=== PATIENT | male | born 1985 | race American Indian/Alaskan Native ===

== ENCOUNTER 2024-10-05 01:38 | Emergency (ER) | payer OTHER, SELFPAY ==
[2024-10-05 01:38] VITALS: BMI 28.1
[2024-10-05 01:55] VITALS: BP 123/95; PULSE 97; RESP 18; TEMP 38.1; O2SAT 95
--- NOTE | 2024-10-05 02:38 | EDRME_ITS ---
Rapid Medical Screening Exam [facility] Arrival date/time: 10/05/24 01:38 38M with no significant PMH presents to ED with 1 week of worsening generalized (lower extremity>upper) swelling and body/joint pain. Patient works as a education counselor. Patient also drinks a lot of alcohol most weekends. Patient feels like his sinusitis may also have flared up (bad smell in L nare); patient had ENT surgery 2 years ago for this. Otherwise, patient denies URI symptoms. Chief Complaint: Extremity Injury, Lower Time Seen by Provider: 10/05/24 02:40 Vital signs: Vital Signs Temperature 100.5 F H 10/05/24 01:55 Pulse Rate 97 10/05/24 01:55 Respiratory Rate 18 10/05/24 01:55 Blood Pressure 123/95 H 10/05/24 01:55 Pulse Oximetry (%) 93 L 10/05/24 01:55 Oxygen Delivery Method Room Air 10/05/24 01:55
[2024-10-05 03:09] LABS: Collection Type, Urine Clean Catch; Squamous Epithelial Cell,Urine 0 /hpf (0-5)
[2024-10-05 03:24] VITALS: TEMP 38.1
[2024-10-05 03:24] LABS: Basophils # (Auto) 0.1 Thou/mm3 (0.0-0.2); Basophils % (Auto) 1 % (0-2.5); Eosinophils # (Auto) 0.8 Thou/mm3 (0.0-0.5); Eosinophils % (Auto) 10 % (0-10); Hematocrit 44.8 % (41.0-53.0); Hemoglobin 14.7 g/dL (13.5-16.0); Immature Granulocytes % (Auto) 0 % (0-0); Immature Granulocytes Auto 0.02 Thou/mm3 (0.00-0.00); Lymphocytes # (Auto) 1.3 Thou/mm3 (1.0-4.8); Lymphocytes % (Auto) 16 % (10-50); Mean Corpuscular HGB Conc 32.8 g/dl (31.0-37.0); Mean Corpuscular Hemoglobin 27.9 pg (25.0-35.0); Mean Corpuscular Volume 85 fL (80-100); Monocytes # (Auto) 0.8 Thou/mm3 (0.0-0.8); Monocytes % (Auto) 9 % (0-12); Neutrophils # (Auto) 5.5 Thou/mm3 (1.8-7.7); Neutrophils % (Auto) 64 % (37-80); Nucleated Red Blood Cell % 0 /100 WBC (0); Platelet Count 330 Thou/mm3 (140-440); RDW Standard Deviation 39.6 fL (35.1-43.9); Red Blood Count 5.26 Miln/mm3 (4.50-5.90); White Blood Count 8.5 Thou/mm3 (3.8-10.6)
[2024-10-05] MEDS: ACETAMINOPHEN 500 MG TABLET 1000 MG PO (03:24)
[2024-10-05] MEDS: NAPROXEN 250 MG TABLET 500 MG PO (03:25)
[2024-10-05 03:26] LABS: Bilirubin,Urine Negative (Negative); Blood,Urine Negative (Negative); Clarity,Urine Clear (Clear/Hazy); Color,Urine Lt-Yellow (Lt Yel-Yel); Glucose, Urine Negative (Negative); Ketones,Urine Negative (Negative); Leukocyte Esterase,Urine Negative (Negative); Nitrite,Urine Negative (Negative); PH,Urine 6.5 (5.0-7.0); Protein,Urine Negative (Neg - Trace); RBC,Urine 1 /hpf (0-3); Specific Gravity,Urine 1.018 (1.001-1.035); Urobilinogen,Urine Negative mg/dL (0.0-1.0); WBC,Urine 1 /hpf (0-5)
[2024-10-05 03:32] LABS: B-Type Natriuretic Peptide < 20 pg/mL (0-100)
[2024-10-05 03:37] LABS: Alanine Aminotransferase 21 U/L (10-49); Albumin, Serum 4.9 gm/dL (3.5-5.0); Albumin/Globulin Ratio 1.4 (1.2-2.2); Alkaline Phosphatase 102 U/L (46-116); Anion Gap 8 (7-16); Aspartate Amino Transferase 19 U/L (0-34); BUN/Creatinine Ratio 12 Ratio (12-20); Bilirubin,Total 0.8 mg/dL (0.3-1.2); Blood Urea Nitrogen 12 mg/dL (9-23); Calcium 9.5 mg/dL (8.3-10.6); Calcium (Corrected) 9.5 mg/dL (8.5-10.1); Carbon Dioxide 26.6 mMol/L (20.0-31.0); Chloride 101 mMol/L (98-107); Estimated Creatinine Clearance 101.4 mL/min (>60); Globulin 3.4 gm/dL (2.3-3.5); Glucose 113 mg/dL (74-106); Osmolality,Calculated 272 (275-295); Potassium 4.5 mMol/L (3.4-5.1); Sodium 136 mMol/L (136-145); Thyroid Stimulating Hormone 2.52 uIU/mL (0.55-4.78); Total Protein 8.3 gm/dL (5.7-8.2); eGFR > 60 See Note
[2024-10-05 03:39] LABS: Amphetamine/Methamp Scrn,U Negative (Negative); Barbiturate Screen,Urine Negative (Negative); Benzodiazepines Screen,Urine Negative (Negative); Benzoylecgonine Screen, Ur Negative (Negative); Fentanyl Screen,Urine Negative (Negative); Opiate Screen,Urine Negative (Negative); THC Screen,Urine Negative (Negative)
--- NOTE | 2024-10-05 04:38 | EDNOTE_ITS ---
Lower Extremity Injury RME/HPI General Chief Complaint: Extremity Injury, Lower Stated Complaint: LEG, HAND SWELLING/PAIN Time Seen by Provider: 10/05/24 02:40 Arrival date/time: 10/05/24 01:38 RME / HPI RME / HPI Narrative: 10/05/24 01:38 38M with no significant PMH presents to ED with 1 week of worsening generalized (lower extremity>upper) swelling and body/joint pain. Patient works as a customer support specialist. Patient also drinks a lot of alcohol most weekends. Patient feels like his sinusitis may also have flared up (bad smell in L nare); patient had ENT surgery 2 years ago for this. Otherwise, patient denies URI symptoms. Dr. Trejo?s Main ED Evaluation: 38yo male with no significant past medical history presents to the ED for complaints of BLE pain and swelling. Patient states he started having BLE pain on Wednesday, reporting he started noticing BLE swelling tonight. He states he also has swelling and pain to his bilateral elbows and hands, as well as having a rash to his legs. He reports associated chills. He endorses taking NSAIDs at home with some improvement of symptoms. He denies any other associated symptoms. Patient works as a customer support specialist. No known allergies. Related Data Allergies Allergy/AdvReac Type Severity Reaction Status Date / Time NKA* Allergy Uncoded 10/05/24 01:41 Review of Systems Review of Systems Systems Reviewed: All systems reviewed, normal except as documented Narrative Review of Systems: Gen: No fever, no chills, no weight loss EYES: No discharge, no visual changes, no pain HEENT: No ear pain, no congestion, no sore throat PULM: No shortness of breath, no cough, no congestion CV: No chest pain, no dyspnea on exertion, no palpitations GI: No nausea, no vomiting, no diarrhea, no pain, no constipation : No frequency, no urgency, no dysuria Musc/skel: + joint pain, no back pain Skin: + rash. Warm and dry. Psyc: No hallucinations, no depression Heme/Lymph: No easy bleeding or bruising tendencies Neuro: No weakness, no headache ED Exam Narrative Physical exam: GENERAL APPEARANCE: alert and oriented x 4, well-developed, well-nourished, no acute distress VITALS: All vitals were reviewed and the pulse ox is 95% on room air, which is normal according to my interpretation. HEENT: Normocephalic, atraumatic; pupils equal, round, reactive to light; EOMI; mucous membranes pink, moist; oropharynx clear NECK: Supple LUNGS: CTABL; no wheezes, no rales, no rhonchi HEART: Regular rate, regular rhythm; normal S1, S2; no murmurs ABDOMEN: non distended; normal BS; soft, no tenderness, no guarding, no rebound; no masses, no organomegaly, no hernia BACK: no CVA tenderness EXTREMITIES: atraumatic; no edema NEUROLOGIC: awake; alert and oriented x4; cranial nerves II-XII grossly intact; no focal sensory or motor deficits PSYCHIATRIC: appropriate mood and affect SKIN: warm, dry, normal color; mild erythematous rash with 1-2 cm irregular circular macules that are tender to touch to the BLE; no papules, pustules, vesicles, petechiae or purpuric. Course Quality Measures none Orders Category Date Time Status BNP [B-Type Natriuretic Peptide] Stat Lab 10/05/24 02:58 Completed CBC Stat Lab 10/05/24 02:58 Completed CMP [Comprehensive Metabolic Panel] Stat Lab 10/05/24 02:58 Completed Drug Screen,Urine Stat Lab 10/05/24 03:00 Completed Free T4 (Free Thyroxine) Stat Lab 10/05/24 02:58 Completed TSH [Thyroid Stimulating Hormone] Stat Lab 10/05/24 02:58 Completed Urinalysis Stat Lab 10/05/24 03:00 Completed Acetaminophen Tab [Tylenol ES Tab] Med 10/05/24 02:45 Discontinued 1,000 mg PO X1 ONE Dexamethasone Inj [Decadron Inj] Med 10/05/24 04:53 Discontinued 10 mg .ROUTE .STK-MED ONE Dexamethasone Inj [Decadron Inj] Med 10/05/24 04:41 Discontinued 10 mg PO X1 ONE HYDROcodone/APAP 10/325 [[place] 10/325] Med 10/05/24 04:56 Discontinued 1 tab PO X1 ONE Naproxen [Naprosyn] Med 10/05/24 02:37 Discontinued 500 mg PO X1 ONE Vital Signs Vital signs: Vital Signs Temperature 100.5 F H 10/05/24 01:55 Pulse Rate 97 10/05/24 01:55 Respiratory Rate 18 10/05/24 01:55 Blood Pressure 123/95 H 10/05/24 01:55 Pulse Oximetry (%) 95 10/05/24 01:55 Oxygen Delivery Method Room Air 10/05/24 01:55 Extremity Injury, Lower MDM Narrative MDM Narrative:: Scribe Attestation: 10/05/24 - Libertad Bobby am scribing for and in the presence of Dr. Trejo. Patient data External records reviewed:: [facility] previous records (Per chart review, patient has no previous ED visits or admissions to this facility.) Clinical information provided by:: patient Social determinants that could affect healthcare access:: none Patient has the following chronic illnesses:: none How is presenting disease/condition affected by chronic disease/condition?: no chronic disease Evaluation data The following diagnostics were reviewed and interpreted by me:: lab results Lab and/or radiology exams considered but not ordered:: none Interpretation Summary: CBC is normal, CMP is normal, BNP is normal, UA is unremarkable, UDS is negative, according to my interpretation. Medications / Prescriptions Medications or Prescriptions considered but not ordered:: none Medication administrations:: Medication Administration History Discontinued Medications Acetaminophen (Acetaminophen 500 Mg Tablet) 1,000 mg PO X1 ONE Stop: 10/05/24 02:46 Last Admin: 10/05/24 03:24 Dose: 1,000 mg Documented By: EE Hydrocodone Bitart/Acetaminophen (Hydrocodone/Apap 10/325 Tab) 1 tab PO X1 ONE Stop: 10/05/24 04:57 Last Admin: 10/05/24 05:26 Dose: 1 tab Documented By: SE Dexamethasone Sodium Phosphate (Dexamethasone Sod Phos Inj 10 Mg/Ml Vial) 10 mg PO X1 ONE Stop: 10/05/24 04:42 Last Admin: 10/05/24 05:00 Dose: 10 mg Documented By: CVL Dexamethasone Sodium Phosphate (Dexamethasone Sod Phos Inj 10 Mg/Ml Vial) Confirm Administered Dose 10 mg .ROUTE .STK-MED ONE Stop: 10/05/24 04:54 Last Admin: 10/05/24 05:04 Dose: Not Given Documented By: CVL Non-Admin Reason: Duplicate Medication on eMAR Naproxen (Naproxen 250 Mg Tablet) 500 mg PO X1 ONE Stop: 10/05/24 02:38 Last Admin: 10/05/24 03:25 Dose: 500 mg Documented By: AVELINO see above Consultations Consultation(s) initiated? (list below): No Diagnosis Extremity Injury, Lower Differential Diagnosis: other (rheumatoid arthritis, gout, erythematous nodosum, systemic lupus) Most likely diagnosis given after review of the tests above:: see below Admission Indicated Admission indicated?: not indicated Admission Request Was there a request for admission?: No Disposition Plan Disposition Plan: Discharge Discharge Attestation Discharge Attestation: The patient and all family members were given an opportunity to ask questions and understood the discharge instructions. Discharge instructions specifically effects, indications for sooner follow up or return to the emergency department, and the expected course of current diagnosis. Patient condition: Stable Discharge Plan Plan Patient Disposition: HOME (Self Care) Disposition Comment: Stable for discharge Patient condition on transfer: Stable Prescriptions/Referrals Referrals: Ollie Johnson PA-C [Primary Care Provider] - In 1 week Problem List Clinical Impression: Polyarthritis Patient/Caregiver Discharge Instructions Discharge Activity: activity as tolerated Education Materials: What Is Arthritis? Additional Instructions: Please return to the emergency department if you have any worsening or any further medical problems Otherwise you should follow-up with your primary care doctor within the next several days or as soon as possible Tonight we gave you a medicine called dexamethasone. This is a steroid called glucocorticoid. This is an anti-inflammatory medicine. It takes about 4 hours for this medicine to kick in. We also gave you a medicine called hydrocodone. You cannot drive when you take this medicine. This medicine will last about 4 to 6 hours. Hopefully this is a short-term illness. However if you have ongoing similar symptoms it is important to follow-up with your primary care doctor so that you could be tested for rheumatoid arthritis or systemic lupus erythematosus. These are tests that your primary care doctor can perform and if you have any problems being seen by your primary please return to the ER Print Language: Kinyarwanda Stand Alone Forms: Kathrin Award Info., Patient Portal Info Letter
[2024-10-05] MEDS: DEXAMETHASONE SOD PHOS INJ 10 MG/ML VIAL PO (05:00)
[2024-10-05] MEDS: HYDROcodone/APAP 10/325 TAB PO (05:26)
[2024-10-05 05:29] VITALS: RESP 18
== END 2024-10-05 05:30 | disposition home or self-care (01) ==
PROVIDERS: Physician Assistant; Emergency Provider Emergency Medicine; PCP Physician Assistant
DX: M15.9 Polyosteoarthritis, unspecified (principal)
CPT/HCPCS: 36415; 80053; 80307; 81001; 83880; 84439; 84443; 85025; 85652; 86140; 99283; J1100; A9270

== ENCOUNTER → 2024-11-20 | Outpatient (CLI) | payer OTHER, SELFPAY ==
--- NOTE | 2024-11-20 10:03 | XR_ITS ---
Examination: Ankle Bilateral, 6 views Technique: AP oblique lateral each ankle total 6 views Exam date and time: November 20, 2024 1104 hours INDICATIONS: Bilateral ankle swelling and pain beginning 3 months ago. FINDINGS: No fracture or dislocation involving either ankle No erosive or other significant arthritic change No opaque foreign bodies IMPRESSION: No erosive or other significant arthritic change involving either ankle
--- NOTE | 2024-11-20 10:03 | XR_ITS ---
Examination: Sinus series 3 views TECHNIQUE: Katie Madden lateral sinus series 3 views Exam date and time: November 20, 2024 1109 hours INDICATIONS: Sinus pressure and pain beginning 3 years ago. FINDINGS: Mild opacity in the frontal ethmoid air cells Total opacification left maxillary antrum No retention cysts IMPRESSION: Chronic sinusitis as above, severe left maxillary antrum
--- NOTE | 2024-11-20 10:03 | XR_ITS ---
Examination: Knee bilateral, 7 views Technique: Knee AP, lateral, oblique, each knee total 6 views, bilateral axial knees single view total 7 views Date and time of exam: November 20, 2024 1104 hours INDICATIONS: Bilateral knee swelling and pain beginning 3 months ago. FINDINGS: Adequate bone density. No fracture or dislocation involving either knee No erosive or other significant arthritic change involving either knee No opaque foreign bodies IMPRESSION: No erosive or other significant arthritic change involving either knee
== END | disposition home or self-care (01) ==
LOC: CDIM 09:51
PROVIDERS: PCP Nurse Practitioner Family; Referring Provider Nurse Practitioner Family; Visit Provider Nurse Practitioner Family
DX: M25.471 Effusion, right ankle (principal); M25.472 Effusion, left ankle; M25.462 Effusion, left knee; M25.461 Effusion, right knee; J32.8 Other chronic sinusitis
CPT/HCPCS: 70220; 73564; 73610

== ENCOUNTER → 2025-01-11 | Outpatient (CLI) | payer OTHER, SELFPAY ==
--- NOTE | 2025-01-11 17:00 | XR_ITS ---
Examination: CT maxillofacial, without intravenous contrast. 2-D sagittal reconstructions. 3-D reconstructions. Date and time of exam:January 11, 2025, 1701 hours Comparison November 18, 2022 INDICATIONS: Sinus pressure and pain 3 years CTDI: vol (mGy):7.68 DLP: (mGycm):104 Technique: Multiple axial images of maxillofacial region, 3.0 mm slice thickness. 2-D sagittal and coronal reconstructions. 3-D reconstructions. Low dose protocols were performed. One or more of the following dose reduction techniques were used; automated exposure control, adjustment of the mA and/or KV according to patient size, use of iterative reconstruction technique. Findings: Trace mucosal thickening frontal air cells. Significant opacification left ethmoid air cells with occlusion ostiomeatal complex Total opacification left maxillary antrum Extensive mucosal thickening in the left nasal airway, deviation nasal septum to the right 3 mm Significant hypertrophied left inferior nasal turbinate Mildly prominent nasopharyngeal soft tissues sagittal image 62 Symmetrical optic globes IMPRESSION: Significant opacification left ethmoid air cells left maxillary antrum with occlusion left ostiomeatal complex Significant mucosal thickening in the left nasal airway .
== END | disposition home or self-care (01) ==
LOC: CCTX 16:35
PROVIDERS: PCP Nurse Practitioner Family; Referring Provider Otolaryngology; Visit Provider Otolaryngology
DX: J32.0 Chronic maxillary sinusitis (principal); J34.89 Other specified disorders of nose and nasal sinuses
CPT/HCPCS: 70486